=== PATIENT | female | born 1955 | race Two or more races ===

== ENCOUNTER 2023-02-11 06:30 | Day surgery (SDC) | payer OTHER | END 2023-02-11 11:00 | disposition home or self-care (01) | LOC: AMB-ENDOS 06:30 → CIR.AMB 15:15 | PROVIDERS: ATTEND Surgery | DX: D12.0 Benign neoplasm of cecum (principal); K57.30 Diverticulosis of large intestine without perforation or abscess without bleeding; Z20.822 Contact with and (suspected) exposure to COVID-19 ==

== ENCOUNTER 2023-03-16 09:18 | Inpatient (IN) | payer OTHER ==
[~2023-03-16] VITALS: Ht 160 cm; Wt 57.2 kg
[2023-03-16] MEDS ORDERED: ARICEPT23 MG PO (13:59)
[2023-03-16] MEDS ORDERED: BUSPIRONE HCL5 MG PO (13:59)
[2023-03-16] MEDS ORDERED: CALTRATE 600+D1 EACH PO (14:00)
[2023-03-16] MEDS ORDERED: VITAMIN C500 M6 PO (14:01)
[2023-03-16] MEDS ORDERED: ATORVASTATIN CA10 MG PO (14:01)
[2023-03-16] MEDS ORDERED: B12 ACTIVE1000 MCG PO (14:01)
[2023-03-24] MEDS ORDERED: INTESTINEX680 M1 PO (09:43)
[2023-03-24] MEDS ORDERED: NEURONTIN300 MG PO (09:46)
[2023-03-24] MEDS ORDERED: MIRALAX17 GM PO (09:46)
[2023-03-24] MEDS ORDERED: 8 HOUR PAIN RE650 M1 PO (09:48)
[2023-03-24] MEDS ORDERED: LEVSIN0.125 MG PO (09:49)
== END 2023-03-24 12:21 | disposition home or self-care (01) | DRG 331 ==
LOC: O/R 03-22 09:33 → SURG 03-22 10:45
PROVIDERS: Surgery; ADMIT Surgery; ATTEND Surgery
PROC: 07BB4ZZ Excision of Mesenteric Lymphatic, Percutaneous Endoscopic Approach (ICD-10-PCS; 2023-03-22)
PROC: 0DBU4ZZ Excision of Omentum, Percutaneous Endoscopic Approach (ICD-10-PCS; 2023-03-22)
PROC: 0DTF4ZZ Resection of Right Large Intestine, Percutaneous Endoscopic Approach (ICD-10-PCS; principal; 2023-03-22 17:15)
DX: D12.0 Benign neoplasm of cecum (principal); R59.0 Localized enlarged lymph nodes; G30.9 Alzheimer's disease, unspecified; F02.80 Dementia in other diseases classified elsewhere, unspecified severity, without behavioral disturbance, psychotic disturbance, mood disturbance, and anxiety